=== PATIENT | female | born 1995 | race Caucasian/White ===

== ENCOUNTER 2018-03-17 16:04 | Emergency (ER) | payer BC ==
[~2018-03-17] VITALS: Ht 170.2 cm; Wt 51.4 kg
[2018-03-17 16:55] VITALS: BP 127/64
== END 2018-03-17 16:55 | disposition home or self-care (01) ==
LOC: EME 16:04
DX: S09.90XA Unspecified injury of head, initial encounter (principal); S00.12XA Contusion of left eyelid and periocular area, initial encounter; W22.8XXA Striking against or struck by other objects, initial encounter
CPT/HCPCS: 99281; 99283